=== PATIENT | male | born 1945 | race Caucasian/White ===

== ENCOUNTER 2017-09-09 05:20 | Inpatient (IN) | payer OTHER ==
--- NOTE | 2017-09-06 12:12 | HP ---
HISTORY OF PRESENT ILLNESS: patient is here today for presurgical H&P for scheduled Lumbar decompression L3-S1 on 09/09/[address] Muhammad PCP: Dr. Denny Patient is a 71 year old male with a significant past medical history of hypertension, hyperlipidemia, chronic right ankle fracture with chronic edema, psoriasis, fractured right femur 1970, carpal tunnel surgery of right hand 2005 , spinal surgery with removal and replacement of discs C3-C6 January 2006, spinal cortisone injections for spinal discs L3-L5, sleep apnea (on cpap), narcolepsy and cataplexy. Patient is scheduled for lumbar decompression L3-S1 on 09/09/[address] Muhammad and is here for a pre op history and physical. He denies any chest pain, shortness of breath, palpitations, visual defects, abdominal pain or any other discomfort. States he feels well and offers no complaints. He acknowledges stopping ASA, Meloxicam and Centrum Silver prior to surgery as directed by his surgeon. Home medications: lisinopril/hctz 20/25 daily amlodopine 10mg daily fluoxetine hcl 10 mg daily modafinil 200mg BID atorvastin 10mg daily Meloxican 15 daily Tacrolimus ointment daily taclonex topical suspension dialy ASA 81mg daily Centrum Silver daily Fish oil BID CPAP machine @ night Recent travel: none Family History: Social History: , lives with Smoking: denies Alcohol: denies Drugs: denies REVIEW OF SYSTEMS CONSTITUTIONAL: Absent: fever, chills, diaphoresis, generalized weakness, malaise, loss of appetite, weight change HEENT: Absent: rhinorrhea, nasal congestion, throat pain, throat swelling, difficulty swallowing, mouth swelling, ear pain, eye pain, visual changes CARDIOVASCULAR: Absent: chest pain, syncope, palpitations, irregular heart rate, lightheadedness , peripheral edema RESPIRATORY: Absent: cough, shortness of breath, dyspnea with exertion, orthopnea, wheezing, stridor, hemoptysis GASTROINTESTINAL: Absent: abdominal pain, abdominal distension, nausea, vomiting, diarrhea, constipation, melena, hematochezia GENITOURINARY: Absent: dysuria, frequency, urgency, hesitancy, hematuria, flank pain, genital pain MUSCULOSKELETAL: Absent: myalgia, arthralgia, joint swelling, back pain, neck pain SKIN: Absent: rash, itching, pallor HEMATOLOGIC/IMMUNOLOGIC: Absent: easy bleeding, easy bruising, lymphadenopathy, frequent infections ENDOCRINE: Absent: unexplained weight gain, unexplained weight loss, heat intolerance, cold intolerance NEUROLOGIC: Absent: headache, focal weakness or paresthesias, dizziness, unsteady gait, seizure, mental status changes, bladder or bowel incontinence PSYCHIATRIC: Absent: anxiety, depression, suicidal or homicidal ideation, hallucinations. PHYSICAL EXAMINATION: GENERAL: Awake, alert, and fully oriented, in no acute distress. HEAD: Normal with no signs of trauma. EYES: Pupils equal, round and reactive to light, extraocular movements intact, sclera anicteric, conjunctiva clear. No lid lag. EARS, NOSE, THROAT: Ears normal, nares patent, oropharynx clear without exudates. Moist mucous membranes. NECK: Normal range of motion, supple without lymphadenopathy, JVD, or masses. LUNGS: Breath sounds equal, clear to auscultation bilaterally. No wheezes, and no crackles. No accessory muscle use. HEART: Regular rate and rhythm ABDOMEN: Soft, nontender, not distended, normoactive bowel sounds, no guarding, no rebound, no masses. No hepatomegaly or splenomegaly. MUSCULOSKELETAL: Normal range of motion at all joints. No bony deformities or tenderness. No CVA tenderness. UPPER EXTREMITIES: No clubbing. No peripheral edema. LOWER EXTREMITIES: chronic right ankle pain and dependent edema for apx 12 years NEUROLOGICAL: Normal speech. Normal gait. PSYCHIATRIC: Cooperative. Good eye contact. Appropriate mood and affect. SKIN: psoriasis on lower back ASSESSMENT/PLAN: Patient is a 71 year old male with a significant past medical history of hypertension, hyperlipidemia, chronic right ankle fracture and chronic edema, psoriasis, fractured right femur 1970, carpal tunnel surgery of right hand 2005 , spinal surgery with removal and replacement of discs C3-C6 January 2006, spinal cortisone injections for spinal discs L3-L5, sleep apnea (on cpap), narcolepsy and cataplexy. Patient is scheduled for lumbar decompression L3-S1 on 09/09/[address] Muhammad and is here for a pre op history and physical. Imaging: Chest xray 08/30/2017: no acute pathology EKG 08/30/2017: sinus bradycardia 55 Pre op surgery: Lumbar decompression L3-S1: Medical clearance per patient's primary PCP noted in paper chart. Surgery scheduled for September 09, [address] Mil Muhammad. Cardiology: Hypertension history: No chest pain, No reported fatigue or palpitations. On lisinopril/hctz 20/25 daily, amlodopine 10mg daily. Hyperlipidemia history: On atorvastin 10mg daily. Pulmonary: Sleep apnea: on cpap. Followed by [facility] [place] sleep [facility] disposition: full code
[2017-09-09] MEDS ORDERED: SUCCINYLCHOLINE CHLORIDE 200 MG/10 ML VIAL ONE (13:13)
[2017-09-09] MEDS ORDERED: fentaNYL CITRATE 250 MCG/5 ML VIAL ONE ×2 (13:13→13:47)
[2017-09-09] MEDS ORDERED: MIDAZOLAM HCL 2 MG/2 ML SINGLE DOSE VIAL ONE ×3 (13:13)
[2017-09-09] MEDS ORDERED: PROPOFOL 20 ML ONE ×9 (13:13→17:31)
[2017-09-09] MEDS ORDERED: BENZOIN/ALOE VERA/STORAX/TOLU 58 ML BOTTLE ONE (13:19)
[2017-09-09] MEDS ORDERED: THROMBIN (BOVINE) 5,000 UNIT VIAL TP ONE ×2 (13:19→14:45)
[2017-09-09] MEDS ORDERED: HEPARIN NA (PORCINE) 5,000 UNITS/ML 1ML VIAL ONE (13:19)
[2017-09-09] MEDS ORDERED: ceFAZolin SODIUM 1 GM VIAL ONE ×2 (13:53→18:25)
[2017-09-09] MEDS ORDERED: VANCOMYCIN 1,000 MG VIAL (RESTRICTED TO ID ONLY) ONE (13:53)
[2017-09-09] MEDS ORDERED: GLYCOPYRROLATE 0.2 MG/1 ML VIAL ONE ×2 (14:06→14:15)
[2017-09-09] MEDS ORDERED: VANCOMYCIN 500 MG VIAL (RESTRICTED TO ID ONLY) IVPB ONE (14:12)
[2017-09-09] MEDS ORDERED: DEXAMETHASONE SOD PHOSPHATE 4 MG/1 ML VIAL ONE (14:16)
[2017-09-09] MEDS ORDERED: ONDANSETRON 4 MG/2 ML VIAL ONE ×2 (14:16→19:04)
[2017-09-09] MEDS ORDERED: ceFAZolin SODIUM 1 GM VIAL IVPB ONE (14:22)
[2017-09-09] MEDS ORDERED: ROCURONIUM BROMIDE 50 MG/5 ML VIAL ONE (14:39)
[2017-09-09] MEDS ORDERED: GELATIN, ABSORBABLE 100 EACH SPONGE TP ONE (14:45)
[2017-09-09] MEDS ORDERED: TRANEXAMIC ACID 1000 MG/10 ML VIAL ONE (15:43)
[2017-09-09] MEDS ORDERED: ePHEDrine SULFATE 50 MG/1 ML AMPULE ONE (16:12)
[2017-09-09] MEDS ORDERED: PHENYLEPHRINE HCL 10 MG/1 ML SINGLE DOSE VIAL ONE (16:34)
[2017-09-09] MEDS ORDERED: ONDANSETRON 4 MG/2 ML VIAL IVPUSH PRN ×2 (19:45→19:58)
[2017-09-09] MEDS ORDERED: LACTATED RINGERS SOLUTION 1,000 ML IV SCH (19:45)
[2017-09-09] MEDS ORDERED: HYDROmorphone *PCA* 10MG/50ML DISP.SYRIN PCA SCH (19:45)
[2017-09-09] MEDS ORDERED: HYDROmorphone *PCA* 10MG/50ML DISP.SYRIN PCA ONE ×2 (19:52→20:28)
--- NOTE | 2017-09-09 19:54 | PN ---
Progress Note (short form) - Note Progress Note: 71M s/p L4-S1 laminectomies; L3-L4, L4-L5 & L5-S1 PLIF; L2-S1 PISF POD #0. -Admit to ICU post-op. -Pain control: per anaesthesia team. -DVT PPx: - Mechanical only: JULI's, SCD's. -Incentive spirometry. -PT/OT/Rehab, OOB. -WBAT B/L LE. -q4h B/L LE NV checks. -Post-op antibiotics x 2 doses. -NPO until flatus. -f/u AM labs. -f/u drain output. -d/c Vargas catheter when ambulating. -Care per medical hospitalist team. -Discharge planning[facility]; call for appointment; . -Will follow. Mil Muhammad MD (Orthopaedic Surgery).
--- NOTE | 2017-09-09 19:58 | OP ---
Operative Note - Note: Operative Date: 09/09/17 Pre-Operative Diagnosis: Lumbar spinal stenosis Operation: 1. L4-S1 laminectomies. 2. L3-L4, L4-L5 & L5-S1 PLIF. 3. L2-S1. 4. L3, L4 SPO's. 5. Bone autograft. 6. Bone allograft Findings: Incidental durotomy s/p primary repair Post-Operative Diagnosis: Same as Pre-op Surgeon: Mil Muhammad Linoleum Layer Helper: Vinicius Muhammad Anesthesiologist/AIR BAG CURER: Jose Luis Diaz Anesthesia: General Specimens Removed: L3-4, L4-5, L5-S1 discs Estimated Blood Loss (mls): 2,100 Blood Volume Replaced (mls): 1,125 (Cell Saver) Fluid Volume Replaced (mls): 3,000 (Crystalloid) Operative Report Dictated: Yes
[2017-09-09] MEDS: ACETAMINOPHEN 1000 MG/100 ML VIAL (NON FORMULARY) IVPB SCH (20:00)
[2017-09-09] MEDS ORDERED: [UNRECOGNIZED DRUG - OTHER] TD PRN (20:03)
[2017-09-09] MEDS ORDERED: CALCIPOTRIENE TD PRN (20:03)
[2017-09-09] MEDS ORDERED: BETAMETHASONE TD PRN (20:03)
[2017-09-09] MEDS ORDERED: ACETAMINOPHEN 1000 MG/100 ML VIAL (NON FORMULARY) IVPB ONE (20:59)
[2017-09-09] MEDS ORDERED: ACETAMINOPHEN INJECTION 100 ML IVPB ONE (21:00)
[2017-09-09] MEDS: LACTATED RINGERS SOLUTION 1,000 ML IV SCH (21:00)
--- NOTE | 2017-09-09 21:45 | CONSULT ---
Consultation: REQUESTING PROVIDER: CONSULT REQUEST: We have been asked to medically evaluate this patient for ( intensive care ). HISTORY OF PRESENT ILLNESS: Patient is a 71 year old male with a significant past medical history of hypertension, hyperlipidemia, chronic right ankle fracture with chronic edema, psoriasis, sleep apnea (on cpap), narcolepsy and cataplexy. Patient received from PACU after L4-S1 laminectomies. 2. L3-L4, L4-L5 & L5-S1 PLIF. 3. L2-S1. 4. L3, L4 SPO's. 5. Bone autograft. 6. Bone allograft. On STRAIGHTENING ROLL OPERATOR pump for pain control. Complains of pain in back, denies chest pain, sob, palpitations. Denies fecal incontinence. denies numbness and weakness in b/l lower limb. BP 116/68 MA 102 PHYSICAL EXAMINATION Vital Signs - 24 hr 09/09/17 09/09/17 09/09/17 10:20 19:38 19:55 Temperature 98.6 F 98.2 F Pulse Rate 56 L 94 H 90 Respiratory 20 16 16 Rate Blood Pressure 135/70 87/55 92/62 O2 Sat by Pulse 97 95 95 Oximetry (%) 09/09/17 09/09/17 09/09/17 20:10 20:25 20:40 Temperature Pulse Rate 94 H 100 H 92 H Respiratory 16 16 16 Rate Blood Pressure 108/70 99/66 94/69 O2 Sat by Pulse 95 95 95 Oximetry (%) 09/09/17 09/09/17 09/09/17 20:55 21:10 21:25 Temperature 97.9 F Pulse Rate 96 H 94 H 94 H Respiratory 16 16 16 Rate Blood Pressure 100/60 98/70 100/70 O2 Sat by Pulse 95 95 Oximetry (%) GENERAL: Awake, alert, and fully oriented, EARS, NOSE, THROAT: dry mucous membranes. LUNGS: Breath sounds equal, clear to auscultation bilaterally. No wheezes, and no crackles. No accessory muscle use. HEART: Regular rate and rhythm, normal S1 and S2 without murmur, ABDOMEN: Soft, nontender, not distended, normoactive bowel sounds, no guarding, no rebound, no masses. bryant cath in situ, dressing present in entire back UPPER EXTREMITIES: 2+ pulses, warm, well-perfused. No cyanosis. LOWER EXTREMITIES: warm, well-perfused. No calf tenderness. No peripheral edema. sensation to touch intact b/l, moving toes and b/l lower limb SKIN: Warm, dry, Laboratory Results - last 24 hr 09/09/17 09:58 Blood Type A POSITIVE Active Medications Generic Name Dose Route Start Last Admin Trade Name Freq PRN Reason Stop Dose Admin Acetaminophen 1,000 mg 09/09/17 20:00 Ofirmev Injection - IVPB 09/10/17 12:01 Q8H OMEGA Amlodipine Besylate 10 mg 09/10/17 10:00 Norvasc - PO DAILY OMEGA Fluoxetine HCl 10 mg 09/10/17 10:00 Prozac - PO DAILY [facility] Hydrochlorothiazide 25 mg 09/10/17 10:00 Hctz - PO DAILY [facility] Hydromorphone HCl 0 mg 09/09/17 19:45 Dilaudid Concrete Mixer Operator Helper - STRAIGHTENING ROLL OPERATOR 09/12/17 19:46 STRAIGHTENING ROLL OPERATOR OMEGA Protocol Cefazolin Sodium 1 gm/ 50 mls @ 100 mls/hr 09/10/17 02:00 Dextrose IVPB 09/10/17 10:29 Q8H-IV OMEGA Lactated Ringer's 1,000 mls @ 100 mls/hr 09/09/17 20:00 Lactated Ringers Solution IV ASDIR [facility] Lisinopril 20 mg 09/10/17 10:00 Prinivil PO DAILY [facility] Non-Formulary Medication 0.1 tube 09/09/17 20:03 Calcipotriene/Betamethasone [Taclonex 0.005%-0.064% Suspens] TD PRN PRN PSORIASIS Non-Formulary Medication 200 mg 09/10/17 10:00 Modafinil [Modafinil] PO DAILY [facility] Ondansetron HCl 4 mg 09/09/17 19:45 Zofran Injection IVPUSH Q6H PRN NAUSEA AND/OR VOMITING Ondansetron HCl 4 mg 09/09/17 19:58 Zofran Injection IVPUSH Q6H PRN NAUSEA AND/OR VOMITING ASSESSMENT/PLAN: Lumber spinal stenosis s/p L4-S1 laminectomies. 2. L3-L4, L4-L5 & L5-S1 PLIF. 3. L2-S1. 4. L3, L4 SPO's. 5. Bone autograft. 6. Bone allograft. Pain control as per aesthesis, on STRAIGHTENING ROLL OPERATOR pump. Physical therapy request. early ambulation. B/l LE Neuro evaluation q4h antibiotic as per surgery team. NPO until pass flatus Bryant in situ, remove once ambulating. incentive spirometry. Zofran for nausea. HTN on lisinopril/ thiazide and amlodipine aspirin on hold HLD on statin sleep apnea uses CPAP 10cm of h2o h/o Narcolepsy and catplexy home med medafinil fluid LR 100ml/hr electrolyte: repeat in am nutrition : repeat in am dvt pro scd b/l gi pro: pepcid dispo icu Visit type - Emergency Visit Emergency Visit: Yes ED Registration Date: 09/09/17 Care time: The patient presented to the Emergency Department on the above date and was hospitalized for further evaluation of their emergent condition. - New Patient This patient is new to me today: Yes Date on this admission: 09/10/17 - Critical Care Critical Care patient: Yes Total Critical Care Time (in minutes): 45 Critical Care Statement: The care of this patient involved high complexity decision making to prevent further life threatening deterioration of the patient 's condition and/or to evaluate & treat vital organ system(s) failure or risk of failure.
[2017-09-09] MEDS: FAMOTIDINE 20 MG/50 ML IVPB 20 MG/50 ML MG IVPB SCH (22:34)
[2017-09-10] MEDS ORDERED: ceFAZolin SODIUM 1 GM VIAL ONE ×2 (01:13→09:47)
[2017-09-10] MEDS ORDERED: DEXTROSE 5%-WATER - 50 ML IVPB ONE ×2 (01:14→09:48)
[2017-09-10] MEDS: CEFAZOLIN 1 GM in DEXTROSE 5%-WATER - 50 ML IVPB SCH ×2 (01:16→10:11)
[2017-09-10] MEDS: ACETAMINOPHEN 1000 MG/100 ML VIAL (NON FORMULARY) IVPB SCH ×2 (04:00→12:35)
[2017-09-10 06:13] LABS: HEMATOCRIT 39.9 % (35.4-49); HEMOGLOBIN 13.1 GM/dL (11.7-16.9); MCH 29.6 pg (25.7-33.7); MCHC 32.8 g/dl (32.0-35.9); MEAN CELL VOLUME 90.2 fl (80-96); MEAN PLT VOLUME 9.7 fl (7.5-11.1); PLATELET COUNT 162 K/MM3 (134-434); RBC 4.43 M/mm3 (4.00-5.60); RDW 14.2 % (11.9-15.9)
[2017-09-10 06:37] LABS: ANION GAP 9 (8-16); BLOOD UREA NITROGEN 29 mg/dL (7-18); CALCIUM 8.4 mg/dL (8.5-10.1); CHLORIDE 103 mmol/L (98-107); CO2 27 mmol/L (21-32); CREATININE 1.7 mg/dL (0.7-1.3); GLUCOSE,RANDOM 193 mg/dL (74-106); POTASSIUM 5.1 mmol/L (3.5-5.1); SODIUM 139 mmol/L (136-145)
--- NOTE | 2017-09-10 07:28 | OP ---
DATE OF OPERATION: 09/09/2017 SURGEON: Mil Muhammad MD BUDGET CONTROLLER: Vinicius Muhammad MD PREOPERATIVE DIAGNOSIS: L3-L4, L4-L5, L5-S1 disc prolapse disease with spinal stenosis, segmental instability, kyphosis, and associated degenerative lumbar scoliosis. POSTOPERATIVE DIAGNOSIS: L3-L4, L4-L5, L5-S1 disc prolapse disease with spinal stenosis, segmental instability, kyphosis, and associated degenerative lumbar scoliosis. OPERATION PERFORMED: 1. Laminectomy L3, L4 and L5. 2. Undercutting facetectomy, L3, L4, and L5, left and right hand sides. 3. Posterior lumbar interbody fusion, L3-L4, L4-L5, and L5-S1. 4. Incidental dural tear with dural repair. 5. Pedicle screw instrumentation L2, L3, L4, L5, S1 (due to scoliosis). Planned L3, L4, L5, S1 fusion. Bone graft, autograft, allograft, and bone marrow aspirate concentrate added to the bone graft. 6. Use of biplane fluoroscopy and intraoperative neuromonitoring. 7. Villeda-Rodríguez osteotomy at L4-L5. 8. Complex wound closure 30 cm. 9. Pedicle screw instrumentation with posterolateral arthrodesis L2, L3, L4, L5 , S1. OPERATION DETAILS: Patient was correctly identified, brought into the operating room, placed prone on a spinal frame with Dalton rolls. The pelvis was held in as much extension as possible to prevent any retroversion. Time-out was called. Imaging was developed for intraoperative evaluation. The skin was cleansed with Betadine scrub solution, wiped with alcohol, and DuraPrep applied. A square drape applied. Preoperative incision, lateral fluoroscopic x-ray, helped us delineate exactly the level of the incision. Incision was from the tip of the sponge from the spinous process of T12 right down to the tip of the spinous process of S2. Longitudinal incision performed. Subperiosteal dissection performed, extending out to the transverse processes of L2, L3, L4, L5, S1. We originally planned the surgery to be an L3, L4, L5, S1 fusion to take care of the stenosis, but seeing the scoliosis on the table, and this is a purely lumbar scoliosis striking at the L1-L2 level, we elected to extend right up to the striking of the spine at L2. Full laminectomy at L3, L4, L5, S1, with undercutting facetectomy performed. A dural rent distally was noted, and this was then repaired with 4-0 nylon. This is water-tight sealed and tested with repeat Valsalva maneuvers at 30 cm and then the final at 40 cm and complete sealing performed. After the repair, Surgicel combined with fibrin glue was placed over the dura. This, to ensure that there was no leakage. The dura was completely freed. This proved to be an extremely difficult dissection due to the adherence of the dura to the vertebral canal diaz, and the discs were massive bulging discs at L3-L4, L4-L5, and L5-S1. Each disc was identified. Bipolar Bovie was utilized to take care of the epidural veins, which were massive. Bleeding was copious throughout. The annulotomy was performed with the 11 blade. Shaving was performed at each level, and serrated curettes as well as pituitary rongeurs entered each disc at each of these levels completely right down to healthy end-plate bone. Each interbody space was then packed with cancellous cortical bone, which was milled in a [employer], packed into the interbody space, and at each level, an appropriate interbody cage was inserted. The L3-L4 and the L5-S1 cages measured 11 (these were 40-link spaces) , and the L4-L5 interspace was a 12-mm 40-link spacer. No complications in inserting these excepting for a steady ooze. Self-saving blood was utilized. The dissection, which was taken out to the tip of the transverse processes, the muscles were retracted further, and instrumentation was performed from L2 to S1 , each dual seating was with lateral guidelines guided with lateral fluoroscopic x- ray. Each drill hole was palpated with a ball-tipped probe and each screw measured 6.5 x 45 mm screws excepting at S1 there was 7.5 x 40 mm screws. Each screw was then tested after having been placed appropriately. The AP and lateral x-rays were checked and found to be in most satisfactory position. The cages themselves had opened to disc heights beautifully and restoring the entire anatomy of the lumbar lordosis and vertebral canal. The rods were then applied to the screw heads, tightened with the appropriate caps and torque device. One crosslink applied. It must be noted that all screws, once seated, had been tested with neuromonitoring and found to be completely within the safe zones, well above 10 mA for each screw. The wounds were covered laboriously throughout the procedure. Once the instrumentation had been seated, another 1 g of Kefzol was given, preoperatively 2 g of Kefzol and 1 g vancomycin had been given. The posterolateral arthrodesis was completed by packing a combination of autologous as well expanded allograft bone chips all mixed with 120 mL of marrow aspirate from a left posterior ileum, which was spun down for the CD34 cells and mixed appropriately for enhanced bone incorporation. The wounds were then thoroughly lavaged, the dura checked once again, found to be completely sealed. The muscle was appropriately debrided because of prolonged retraction throughout the procedure. Skin was a complex wound closure as follows: Muscle 1 Vicryl, fascia 1 Vicryl, subcutaneous 1 and 2-0 Vicryl, skin lamar. No drainage. We left intermittent easy suturing to allow drainage themselves. The reason for the lack of drainage was because of the avoidance of negative pressure due to the dural tear. Patient tolerated the procedure well. Postoperative x-rays were excellent and revealed all components seated well and anatomy restored. Patient will be transferred to the ICU. MD GAETANO King/[id number] MTDMay
[2017-09-10] MEDS ORDERED: PT OWN MED DRAWER 7, Y5N ONE (09:47)
[2017-09-10] MEDS ORDERED: amLODIPine BESYLATE 10 MG TABLET (FP) PO SCH (10:00)
[2017-09-10] MEDS ORDERED: HYDROCHLOROTHIAZIDE 25 MG TABLET (FP) PO SCH (10:00)
[2017-09-10] MEDS ORDERED: PATIENT'S OWN MEDICATION (NON-FORMULARY) (Lisinopril/Hydrochlorothiazide [Lisinopril-Hctz PO SCH (10:00)
[2017-09-10] MEDS ORDERED: LISINOPRIL 20 MG TABLET (FP) PO SCH (10:00)
[2017-09-10] MEDS: FAMOTIDINE 20 MG/50 ML IVPB 20 MG/50 ML MG IVPB SCH ×2 (10:12→21:11)
[2017-09-10] MEDS: HYDROmorphone *PCA* 10MG/50ML DISP.SYRIN PCA SCH (10:14)
[2017-09-10] MEDS: FLUoxetine HCL 10 MG CAPSULE (FP) PO SCH (10:14)
--- NOTE | 2017-09-10 12:57 | PN ---
Teaching Attending Note Name of Resident: Hira Bowman ATTENDING PHYSICIAN STATEMENT I saw and evaluated the patient. I reviewed the resident's note and discussed the case with the resident. I agree with the resident's findings and plan as documented. SUBJECTIVE: Pt seen and examined in the ICU. Pain relatively controlled. Denies nausea or vomiting. No fevers or chills. No shortness of breath or chest pain. OBJECTIVE: Vital Signs Period Temp Pulse Resp BP Sys/Irizarry Pulse Ox Last 24 Hr 97.9 F-98.7 F 77-104 16-20 87-111/55-77 95-97 Intake & Output 09/07/17 09/08/17 09/09/17 09/10/17 23:59 23:59 23:59 23:59 Intake Total 4325 1050 Output Total 2500 500 Balance 1825 550 Gen: NAD at rest Heart: RRR Lung: decreased breath sounds at the bases Abd: soft, nontender Ext: no edema CBC, BMP 09/10/17 05:30 09/10/17 05:30 Active Medications Fluoxetine HCl (Prozac -) 10 mg PO DAILY [facility] Last Admin: 09/10/17 10:14 Dose: 10 mg Hydromorphone HCl (Dilaudid Skein Dyer -) 0 mg INSTRUCTIONAL SUPPORT SERVICES DIRECTOR INSTRUCTIONAL SUPPORT SERVICES DIRECTOR [facility]; Protocol Last Admin: 09/10/17 10:14 Dose: Not Given Lactated Ringer's (Lactated Ringers Solution) 1,000 mls @ 100 mls/hr IV ASDIR [facility] Last Admin: 09/09/17 21:00 Dose: 100 mls/hr Famotidine/Sodium Chloride (Pepcid 20 Mg Premixed Ivpb -) 20 mg in 50 mls @ 100 mls/hr IVPB BID [facility] Last Admin: 09/10/17 10:12 Dose: 100 mls/hr Non-Formulary Medication (Calcipotriene/Betamethasone [Taclonex 0.005%-0.064% Suspens]) 0.1 tube TD PRN PRN PRN Reason: PSORIASIS Non-Formulary Medication (Modafinil [Modafinil]) 200 mg PO DAILY [facility] Ondansetron HCl (Zofran Injection) 4 mg IVPUSH Q6H PRN PRN Reason: NAUSEA AND/OR VOMITING Ondansetron HCl (Zofran Injection) 4 mg IVPUSH Q6H PRN PRN Reason: NAUSEA AND/OR VOMITING Oxycodone/Acetaminophen (Percocet 5/325 -) 1 combo PO Q6H PRN PRN Reason: PAIN LEVEL 1-5 Oxycodone/Acetaminophen (Percocet 5/325 -) 2 combo PO Q3H PRN PRN Reason: PAIN LEVEL 6-10 ASSESSMENT AND PLAN: Lumbar Spinal Stenosis s/p L4-S1 Laminectomies/L3-L4, L4-L5, L5-S1 PLIF Incidental Durotomy Acute Blood Loss Anemia Acute Kidney Injury HTN Hyperlipidemia - pain control - incentive spirometry - monitor H/H - IVF - monitor urine output, creatinine - PO/activity/DVT prophylaxis/disposition per surgery
[2017-09-10 13:31] LABS: BASO % 0.2 % (0-2.0); HEMATOCRIT 37.3 % (35.4-49); HEMOGLOBIN 12.2 GM/dL (11.7-16.9); LYMPH % 4.8 % (8-40); MCH 29.5 pg (25.7-33.7); MCHC 32.7 g/dl (32.0-35.9); MEAN CELL VOLUME 90.2 fl (80-96); MEAN PLT VOLUME 9.9 fl (7.5-11.1); MONO % 9.8 % (3.8-10.2); NEUT % 85.2 % (42.8-82.8); PLATELET COUNT 172 K/MM3 (134-434); RBC 4.14 M/mm3 (4.00-5.60); RDW 14.5 % (11.9-15.9); WHITE BLOOD COUNT 17.5 K/mm3 (4.0-10.0)
--- NOTE | 2017-09-10 14:22 | PN ---
Progress Note (short form) - Note Progress Note: POD #1 - s/p L2-S1 PLIF under GA with Dilaudid FISHER MUSSEL for postop pain management. VSS. Pt. doing well, resting in bed getting ready for some rehab. Pain score 7/10. Pt. encouraged to use FISHER MUSSEL. Also getting IV acetaminophen. Will continue FISHER MUSSEL for now. Overall, doing well. No apparent anesthetic complications noted.
[2017-09-10] MEDS ORDERED: oxyCODONE HCL 5 MG TABLET PO PRN ×2 (14:25→14:28)
[2017-09-10] MEDS ORDERED: ACETAMINOPHEN 325 MG TABLET (FP) PO PRN ×2 (14:25→14:33)
[2017-09-10 15:35] VITALS: BMI 26.9
--- NOTE | 2017-09-10 17:28 | PN ---
Teaching Attending Note Name of Resident: Sunita Denise ATTENDING PHYSICIAN STATEMENT I saw and evaluated the patient. I reviewed the resident's note and discussed the case with the resident. I agree with the resident's findings and plan as documented. SUBJECTIVE:c/o incisional pain on his back as well as generalized weakness. states pain is controlled. denies Cp, SOB, fever, chills, N/V/C/D, numbness/ weakness of extremities OBJECTIVE: Last Vital Signs Temp Pulse Resp BP Pulse Ox 98.2 F 77 20 91/52 97 09/10/17 14:00 09/10/17 16:00 09/10/17 16:00 09/10/17 16:00 09/10/17 08:45 General NAD CV S1 S2 RRR no murmur/rub/gallop Lungs CTA B/L no wheezing/rales/rhonchi Abdomen soft NT/ND extremities strength equal in all 4 extremities good dorsi/plantarflexion. swelling limited to R ankle ASSESSMENT AND PLAN: 71yo M with PMH spinal stenosis, HTN, dyslipidemia, R ankle fracture, psoriasis , MADHURI on cpap, narcolepsy presented for scheduled for laminectmy 1. Spinal stenosis s/p L4-S1 laminectomy with durotomy tear s/p repair. on prophylactic cefazlin. appears pain is controlled on CEMENT RUBBER pump. can likely d/c and transition to oral agents. OOB. can remove bryant when ambulating. advance diet. further recommendations per surgery. 2. significant blood loss during surgery- cellsaver and crystalloids given during surgery. will repeat later today to ensure is staying stable. no indication for transfusion at this time 3. Hypotension- typicaly hypertensives. likely due to hypovolemia combined with narcotic use. improved. asymptomatic. would hold all antihypertensives and restart as needed 4. CAMI- likely due to hypotension. no known hx of CKD. will hydrate and monitor. avoid nephrotoxic agents. consider renal u/s if does not improve 5. MADHURI- on cpap HS 6. narcolepsy- on modafinil. will see if formulary. if not pt can bring in from home 7. DVT ppx- SCD 8. MICU monitoring. if BP improves can transfer to med-surg The care of this patient involved high complexity decision making to prevent further life threatening deterioration of the patient's condition and/or to evaluate & treat vital organ system(s) failure or risk of . 40 mins
[2017-09-10] MEDS: LACTATED RINGERS SOLUTION 1,000 ML IV SCH ×2 (17:30→21:12)
--- NOTE | 2017-09-10 19:15 | PN ---
Physical Exam: SUBJECTIVE: Patient seen and examined today in icu. C/o rt upper back pain near site of surgery. Also c/o rt hand tremor. Denies cp, sob, huang, nausea, or vomiting. OBJECTIVE: Vital Signs Period Temp Pulse Resp BP Sys/Irizarry Pulse Ox Last 24 Hr 97.9 F-98.7 F 77-104 16-21 87-111/50-77 95-97 GENERAL: aaoX3 HEAD: Normal with no signs of trauma. EYES: EOMI NECK: Trachea midline, full range of motion, supple. LUNGS: CTA B/L. HEART: RRR, -m/r/g, s1,s2+ ABDOMEN: soft, nt, nd, -bs. EXTREMITIES: 2+ pulses, warm NEUROLOGICAL: No neuro deficits PSYCH: Normal mood, normal affect. SKIN: Warm, dry. Laboratory Results - last 24 hr 09/10/17 09/10/17 09/10/17 05:30 05:30 13:05 WBC 20.0 H 17.5 H RBC 4.43 4.14 Hgb 13.1 12.2 Hct 39.9 37.3 MCV 90.2 90.2 MCH 29.6 29.5 MCHC 32.8 32.7 RDW 14.2 14.5 Plt Count 162 172 MPV 9.7 9.9 Absolute Neuts (auto) 14.9 Neutrophils % 85.2 H Lymphocytes % 4.8 L Monocytes % 9.8 Eosinophils % 0.0 Basophils % 0.2 Nucleated RBC % 0 Sodium 139 Potassium 5.1 Chloride 103 Carbon Dioxide 27 Anion Gap 9 BUN 29 H Creatinine 1.7 H Creat Clearance w eGFR 40.16 Random Glucose 193 H Calcium 8.4 L Active Medications Generic Name Dose Route Start Last Admin Trade Name Freq PRN Reason Stop Dose Admin Acetaminophen 325 mg 09/10/17 14:25 Tylenol - PO Q6H PRN PAIN LEVEL 1-5 WITH OXYCODONE Acetaminophen 650 mg 09/10/17 14:33 Tylenol - PO Q3H PRN PAIN LEVEL 6-10 WITH OXYCODONE Fluoxetine HCl 10 mg 09/10/17 10:00 09/10/17 10:14 Prozac - PO 10 mg DAILY [facility] Administration Hydromorphone HCl 0 mg 09/10/17 09:45 09/10/17 10:14 Dilaudid Jewelry Bench Worker - PERSONAL LOAN SPECIALIST Not Given PERSONAL LOAN SPECIALIST [facility] Protocol Lactated Ringer's 1,000 mls @ 100 mls/hr 09/09/17 20:00 09/09/17 21:00 Lactated Ringers Solution IV 100 mls/hr ASDIR [facility] Administration Famotidine/Sodium Chloride 20 mg in 50 mls @ 100 mls/hr 09/09/17 22:00 10:12 Pepcid 20 Mg Premixed Ivpb - IVPB 100 mls/hr BID [facility] Administration Non-Formulary Medication 0.1 tube 09/09/17 20:03 Calcipotriene/Betamethasone [Taclonex 0.005%-0.064% Suspens] TD PRN PRN PSORIASIS Non-Formulary Medication 200 mg 09/10/17 10:00 Modafinil [Modafinil] PO DAILY [facility] Ondansetron HCl 4 mg 09/09/17 19:45 Zofran Injection IVPUSH Q6H PRN NAUSEA AND/OR VOMITING Ondansetron HCl 4 mg 09/09/17 19:58 Zofran Injection IVPUSH Q6H PRN NAUSEA AND/OR VOMITING Oxycodone HCl 5 mg 09/10/17 14:25 Roxicodone - PO Q6H PRN PAIN LEVEL 1-5 Oxycodone HCl 10 mg 09/10/17 14:28 Roxicodone - PO Q3H PRN PAIN LEVEL 6-10 ASSESSMENT/PLAN: 71yo M with past medical history of spinal stenosis, HTN, dyslipidemia, right ankle fracture, psoriasis, MADHURI on cpap, and narcolepsy presented for s/p L4-S1 Laminectomies/L3-L4, L4-L5, L5-S1 PLIF [address] Dr Muhammad. PERSONAL LOAN SPECIALIST for pain Physical therapy B/l LE Neuro evaluation q4h antibiotic as per surgery team. Vargas remove once ambulating. incentive mary kate. Zofran for nausea. early ambulation qs JULI's Neuro assessment qshift MADHURI uses CPAP 10cm of h2o h/o Narcolepsy and catplexy- Modafanil 200 mg po daily HTN on lisinopril/ thiazide and amlodipine FEN Lactated Ringer's Monitor Electrolytes Sodium Controlled Diet DVT ppx: JULI's Dispo: Continue to monitor per Dr Muhammad Visit type - Emergency Visit Emergency Visit: No - New Patient This patient is new to me today: Yes Date on this admission: 09/10/17 - Critical Care Critical Care patient: Yes Total Critical Care Time (in minutes): 35 Critical Care Statement: The care of this patient involved high complexity decision making to prevent further life threatening deterioration of the patient 's condition and/or to evaluate & treat vital organ system(s) failure or risk of failure.
--- NOTE | 2017-09-10 19:45 | PN ---
Physical Exam: SUBJECTIVE: Patient seen and examined in the ICU. Has used the pain pump once. Believes his pain is well controlled. Denies Chest pain, SOB, Nausea, vomiting, diarrhea, constiaption. OBJECTIVE: Vital Signs Period Temp Pulse Resp BP Sys/Irizarry Pulse Ox Last 24 Hr 97.9 F-98.7 F 77-104 16-21 87-111/50-77 95-97 GENERAL: The patient is awake, alert, and fully oriented, in no acute distress. LUNGS: Breath sounds equal, clear to auscultation bilaterally, no wheezes, no crackles, on 2L via nasal canula HEART: Regular rate and rhythm, S1, S2 without murmur, rub or gallop. ABDOMEN: Soft, nontender, nondistended, normoactive bowel sounds : Bryant catheter draining dark yellow urine EXTREMITIES: Muscle strength 5/5 in Upper extremities to Flexion and extension, 5/5 in Lower extremities to dorsi flexion and plantar flexion, 2+ pulses, no edema, in SCD's NEUROLOGICAL: Cranial nerves II through XII grossly intact. Normal speech, gait not observed. Gross sensation intact throughout Laboratory Results - last 24 hr 09/10/17 09/10/17 09/10/17 05:30 05:30 13:05 WBC 20.0 H 17.5 H RBC 4.43 4.14 Hgb 13.1 12.2 Hct 39.9 37.3 MCV 90.2 90.2 MCH 29.6 29.5 MCHC 32.8 32.7 RDW 14.2 14.5 Plt Count 162 172 MPV 9.7 9.9 Absolute Neuts (auto) 14.9 Neutrophils % 85.2 H Lymphocytes % 4.8 L Monocytes % 9.8 Eosinophils % 0.0 Basophils % 0.2 Nucleated RBC % 0 Sodium 139 Potassium 5.1 Chloride 103 Carbon Dioxide 27 Anion Gap 9 BUN 29 H Creatinine 1.7 H Creat Clearance w eGFR 40.16 Random Glucose 193 H Calcium 8.4 L Active Medications Acetaminophen (Tylenol -) 325 mg PO Q6H PRN PRN Reason: PAIN LEVEL 1-5 WITH OXYCODONE Acetaminophen (Tylenol -) 650 mg PO Q3H PRN PRN Reason: PAIN LEVEL 6-10 WITH OXYCODONE Fluoxetine HCl (Prozac -) 10 mg PO DAILY [facility] Last Admin: 09/10/17 10:14 Dose: 10 mg Hydromorphone HCl (Dilaudid Asphalt Raker -) 0 mg CASTINGS DRAFTER CASTINGS DRAFTER [facility]; Protocol Last Admin: 09/10/17 10:14 Dose: Not Given Lactated Ringer's (Lactated Ringers Solution) 1,000 mls @ 100 mls/hr IV ASDIR [facility] Last Admin: 09/10/17 17:30 Dose: 100 mls/hr Famotidine/Sodium Chloride (Pepcid 20 Mg Premixed Ivpb -) 20 mg in 50 mls @ 100 mls/hr IVPB BID [facility] Last Admin: 09/10/17 10:12 Dose: 100 mls/hr Non-Formulary Medication (Calcipotriene/Betamethasone [Taclonex 0.005%-0.064% Suspens]) 0.1 tube TD PRN PRN PRN Reason: PSORIASIS Non-Formulary Medication (Modafinil [Modafinil]) 200 mg PO DAILY [facility] Ondansetron HCl (Zofran Injection) 4 mg IVPUSH Q6H PRN PRN Reason: NAUSEA AND/OR VOMITING Ondansetron HCl (Zofran Injection) 4 mg IVPUSH Q6H PRN PRN Reason: NAUSEA AND/OR VOMITING Oxycodone HCl (Roxicodone -) 5 mg PO Q6H PRN PRN Reason: PAIN LEVEL 1-5 Oxycodone HCl (Roxicodone -) 10 mg PO Q3H PRN PRN Reason: PAIN LEVEL 6-10 ASSESSMENT/PLAN: 71 year old male with a PMHx of HTN, HLD, chronic right ankle fracture and chronic edema, spinal surgery of discs C3-C6, spinal cortisone injections of discs L3-L5, MADHURI on cpap, narcolepsy and cataplexy who is S/P Lumbar decompression L3-S1 1. Spinal Stenosis s/p L4-S1 laminectomy - Cefazolin 2 doses perioperatively - Pain control via CASTINGS DRAFTER pump, as directed by anaesthesia team - Encouraged to ambulate and be out of bed - Remove bryant once ambulating - Advance diet - Follow recommendations as per surgery team - PT Evaluation - Incentive Spirometry 2. Elevated BUN and Cr - Likely due to Significant blood loss during surgery (2100 ml's) - 1,125mL Blood Volume Replaced via Cell Saver, 3000mL Fluid Volume Replaced via Crystalloid - Repeat Hgb 12.2, Hct 37.3 3. Leukocytosis - Acute phase reactant likely elevated from surgery - WBC 20.0 --> 17.5 - 2 doses cefazolin given - Continue to monitor, consider sepsis workup with accompanied by fevers 4. Hypotension - Likely due to hypovolemia and hypovolemia from narcotic use - Improved, 110/50 this evening - Continue to hold all antihypertensives for now 5. CAMI - Likely due to hypotension - Hydrate and continue to monitor 6. DVT ppx - SCD 7. Dispo - ICU currently, Can transfer to med-surg once BP improves Visit type - Emergency Visit Emergency Visit: No - New Patient This patient is new to me today: Yes Date on this admission: 09/10/17 - Critical Care Critical Care patient: Yes Total Critical Care Time (in minutes): 40 Critical Care Statement: The care of this patient involved high complexity decision making to prevent further life threatening deterioration of the patient 's condition and/or to evaluate & treat vital organ system(s) failure or risk of failure.
[2017-09-11] MEDS ORDERED: HYDROmorphone *PCA* 10MG/50ML DISP.SYRIN PCA ONE (06:03)
[2017-09-11 06:25] LABS: BASO % 0.2 % (0-2.0); HEMATOCRIT 28.5 % (35.4-49); HEMOGLOBIN 9.6 GM/dL (11.7-16.9); MCH 30.1 pg (25.7-33.7); MCHC 33.8 g/dl (32.0-35.9); MEAN CELL VOLUME 89.2 fl (80-96); MEAN PLT VOLUME 9.9 fl (7.5-11.1); MONO % 10.4 % (3.8-10.2); NEUT % 84.4 % (42.8-82.8); PLATELET COUNT 112 K/MM3 (134-434); RBC 3.19 M/mm3 (4.00-5.60); RDW 14.5 % (11.9-15.9)
[2017-09-11 06:48] LABS: ALBUMIN 2.4 g/dl (3.4-5.0); ANION GAP 5 (8-16); BLOOD UREA NITROGEN 36 mg/dL (7-18); CALCIUM 8.2 mg/dL (8.5-10.1); CHLORIDE 102 mmol/L (98-107); CO2 31 mmol/L (21-32); GLUCOSE,RANDOM 134 mg/dL (74-106); MAGNESIUM 1.7 mg/dL (1.8-2.4); POTASSIUM 4.4 mmol/L (3.5-5.1); SODIUM 138 mmol/L (136-145)
[2017-09-11 06:53] LABS: ALK PHOS 63 U/L (45-117); BILIRUBIN,TOTAL 0.4 mg/dL (0.2-1.0); CREATININE 1.6 mg/dL (0.7-1.3); PHOSPHOROUS 2.7 mg/dL (2.5-4.9); SGOT/AST 36 U/L (15-37); SGPT/ALT 20 U/L (12-78); TOT PROT 4.8 g/dl (6.4-8.2)
[2017-09-11] MEDS ORDERED: PT OWN MED DRAWER 7, Y5N ONE ×2 (07:54→09:10)
--- NOTE | 2017-09-11 08:13 | PN ---
Physical Exam: SUBJECTIVE: Patient seen and examined this morning in ICU. Patient continues to have pain and feel weakness. OBJECTIVE: Vital Signs Period Temp Pulse Resp BP Sys/Irizarry Pulse Ox Last 24 Hr 98.1 F-99 F 77-112 14-21 91-124/50-68 94-97 GENERAL: The patient is awake, alert, and fully oriented, in no acute distress. LUNGS: Breath sounds equal, clear to auscultation bilaterally, no wheezes, no crackles, on 2L via nasal canula HEART: Regular rate and rhythm, S1, S2 without murmur, rub or gallop. ABDOMEN: Soft, nontender, nondistended, normoactive bowel sounds : Bryant catheter draining dark yellow urine EXTREMITIES: Muscle strength 5/5 in Upper extremities to Flexion and extension, 5/5 in Lower extremities to dorsiflexion, plantar flexion, knee flexion and extension, 2+ pulses, no edema, in SCD's NEUROLOGICAL: C5-T1 and L4-S1 gross sensation intact throughout BACK: Surgical site bandaged without surrounding erythema or drainage. Laboratory Results - last 24 hr 09/10/17 09/11/17 09/11/17 13:05 05:30 05:30 WBC 17.5 H 13.0 H RBC 4.14 3.19 L Hgb 12.2 9.6 L Hct 37.3 28.5 L D MCV 90.2 89.2 MCH 29.5 30.1 MCHC 32.7 33.8 RDW 14.5 14.5 Plt Count 172 112 L D MPV 9.9 9.9 Absolute Neuts (auto) 14.9 11.0 Neutrophils % 85.2 H 84.4 H Lymphocytes % 4.8 L 5.0 L Monocytes % 9.8 10.4 H Eosinophils % 0.0 0.0 Basophils % 0.2 0.2 Nucleated RBC % 0 0 Sodium 138 Potassium 4.4 Chloride 102 Carbon Dioxide 31 Anion Gap 5 L BUN 36 H Creatinine 1.6 H Creat Clearance w eGFR 43.07 Random Glucose 134 H D Calcium 8.2 L Phosphorus 2.7 Magnesium 1.7 L Total Bilirubin 0.4 AST 36 ALT 20 Alkaline Phosphatase 63 Total Protein 4.8 L Albumin 2.4 L Active Medications Acetaminophen (Tylenol -) 325 mg PO Q6H PRN PRN Reason: PAIN LEVEL 1-5 WITH OXYCODONE Last Admin: 09/11/17 07:55 Dose: 325 mg Acetaminophen (Tylenol -) 650 mg PO Q3H PRN PRN Reason: PAIN LEVEL 6-10 WITH OXYCODONE Fluoxetine HCl (Prozac -) 10 mg PO DAILY [facility] Last Admin: 09/10/17 10:14 Dose: 10 mg Hydromorphone HCl (Dilaudid Grading Clerk -) 0 mg PREP MANAGER PREP MANAGER [facility]; Protocol Last Admin: 09/10/17 10:14 Dose: Not Given Lactated Ringer's (Lactated Ringers Solution) 1,000 mls @ 100 mls/hr IV ASDIR [facility] Last Admin: 09/10/17 21:12 Dose: 100 mls/hr Famotidine/Sodium Chloride (Pepcid 20 Mg Premixed Ivpb -) 20 mg in 50 mls @ 100 mls/hr IVPB BID [facility] Last Admin: 09/10/17 21:11 Dose: 100 mls/hr Non-Formulary Medication (Calcipotriene/Betamethasone [Taclonex 0.005%-0.064% Suspens]) 0.1 tube TD PRN PRN PRN Reason: PSORIASIS Non-Formulary Medication (Modafinil [Modafinil]) 200 mg PO DAILY [facility] Ondansetron HCl (Zofran Injection) 4 mg IVPUSH Q6H PRN PRN Reason: NAUSEA AND/OR VOMITING Ondansetron HCl (Zofran Injection) 4 mg IVPUSH Q6H PRN PRN Reason: NAUSEA AND/OR VOMITING Oxycodone HCl (Roxicodone -) 5 mg PO Q6H PRN PRN Reason: PAIN LEVEL 1-5 Oxycodone HCl (Roxicodone -) 10 mg PO Q3H PRN PRN Reason: PAIN LEVEL 6-10 ASSESSMENT/PLAN: 71 year old male with a PMHx of HTN, HLD, chronic right ankle fracture and chronic edema, spinal surgery of discs C3-C6, spinal cortisone injections of discs L3-L5, MADHURI on cpap, narcolepsy and cataplexy who is S/P Lumbar decompression L3-S1 1. Spinal Stenosis s/p L4-S1 laminectomy POD#2 - Cefazolin 2 doses perioperatively - Will transition to PO Pain control with Tylenol and Oxycodone, D/C PREP MANAGER pump - Encouraged to ambulate and be out of bed - Remove bryant once ambulating - Advanced to Sodium controlled diet, tolerating well - PT Evaluation: Sat at EOB. C/O acute back pain and dizziness - Incentive Spirometry - Follow recommendations as per surgery team 2. Acute Anemia likely due to blood loss during surgery - Hgb 9.6, down from 12.2 - Hct 28.5, down from 37.3 - Repeat CBC shows Hgb at 9.8, Hct at 29.8 - Continue to monitor 3. CAMI - BUN and Cr remain elevated - Likely due to Significant blood loss during surgery (2100 ml's) - 1,125mL Blood Volume Replaced via Cell Saver, 3000mL Fluid Volume Replaced via Crystalloid - Hydrate and continue to monitor - Continue to monitor 4. Leukocytosis - Acute phase reactant likely elevated from surgery - WBC 15.8 - 2 doses cefazolin given - Continue to monitor, consider sepsis workup with accompanied by fevers 5. Hypomagnesemia - Mag 1.7, repleated - Continue to monitor 6. Hypotension - Likely due to hypoperfusion and hypovolemia from narcotic use - Improved, 91-124/50-68 this evening - Continue to hold all antihypertensives for now 7. Tachycardia - HR 72-112 - Possibly due to Hypotension vs pain - EKG: Normal sinus rhythm 8. MADHURI - Continue CPAP at night 9. DVT ppx - SCD Dispo - Transfer to med-surg Visit type - Emergency Visit Emergency Visit: No - New Patient This patient is new to me today: No - Critical Care Critical Care patient: Yes Total Critical Care Time (in minutes): 40 Critical Care Statement: The care of this patient involved high complexity decision making to prevent further life threatening deterioration of the patient 's condition and/or to evaluate & treat vital organ system(s) failure or risk of failure.
--- NOTE | 2017-09-11 08:45 | PN ---
Progress Note (short form) - Note Progress Note: Anesthesia post op/Pain Pt seen and examined S:Alert and awake comfortable O: Vital Signs Temperature 99 F 09/11/17 08:00 Pulse Rate 112 H 09/11/17 08:01 Respiratory Rate 18 09/11/17 08:01 Blood Pressure 115/67 09/11/17 08:01 O2 Sat by Pulse Oximetry (%) 97 09/11/17 08:04 CBC, BMP 09/11/17 05:30 09/11/17 05:30 A/P s/p PLIF Doinh well post op Uses CREW TRAINER Continue current care Blue Ortiz MD
[2017-09-11] MEDS ORDERED: MAGNESIUM SULF 50% (8.12 MEQ/2 ML-1 GM VIAL) IVPB ONE (08:54)
[2017-09-11] MEDS: FAMOTIDINE 20 MG/50 ML IVPB 20 MG/50 ML MG IVPB SCH ×2 (09:00→22:00)
[2017-09-11] MEDS: FLUoxetine HCL 10 MG CAPSULE (FP) PO SCH (09:13)
[2017-09-11] MEDS ORDERED: MAGNESIUM 1GM/D5W - 1 GM/100 ML IVPB IVPB ONE (10:00)
[2017-09-11] MEDS ORDERED: [UNRECOGNIZED DRUG - OTHER] TD PRN ×2 (11:30→14:40)
[2017-09-11] MEDS ORDERED: oxyCODONE HCL 5 MG TABLET PO PRN ×2 (11:30)
[2017-09-11] MEDS ORDERED: LACTATED RINGERS SOLUTION 1,000 ML IV SCH (11:30)
[2017-09-11] MEDS ORDERED: ONDANSETRON 4 MG/2 ML VIAL IVPUSH PRN ×3 (11:30→14:40)
[2017-09-11] MEDS ORDERED: ACETAMINOPHEN 325 MG TABLET (FP) PO PRN ×2 (11:30)
[2017-09-11] MEDS ORDERED: BETAMETHASONE TD PRN ×2 (11:30→14:40)
[2017-09-11] MEDS ORDERED: CALCIPOTRIENE TD PRN ×2 (11:30→14:40)
--- NOTE | 2017-09-11 11:53 | PN ---
Teaching Attending Note Name of Resident: Hira Bowman ATTENDING PHYSICIAN STATEMENT I saw and evaluated the patient. I reviewed the resident's note and discussed the case with the resident. I agree with the resident's findings and plan as documented. SUBJECTIVE: Pt seen and examined in the ICU. Pain controlled with current regimen. No fevers or chills. OBJECTIVE: Vital Signs Period Temp Pulse Resp BP Sys/Irizarry Pulse Ox Last 24 Hr 98.1 F-99 F 77-114 14-21 91-124/50-68 94-97 Intake & Output 09/08/17 09/09/17 09/10/17 09/11/17 23:59 23:59 23:59 23:59 Intake Total 4325 3500 900 Output Total 2500 1400 400 Balance 1825 2100 500 Weight 78.018 kg Gen: NAD at rest Heart: RRR Lung: decreased breath sounds at the bases Abd: soft, nontender Ext: no edema CBC, BMP 09/11/17 05:30 09/11/17 05:30 Active Medications Acetaminophen (Tylenol -) 325 mg PO Q6H PRN PRN Reason: PAIN LEVEL 1-5 WITH OXYCODONE Acetaminophen (Tylenol -) 650 mg PO Q3H PRN PRN Reason: PAIN LEVEL 6-10 WITH OXYCODONE Fluoxetine HCl (Prozac -) 10 mg PO DAILY [facility] Lactated Ringer's (Lactated Ringers Solution) 1,000 mls @ 100 mls/hr IV ASDIR [facility] Last Admin: 09/11/17 11:38 Dose: Not Given Famotidine/Sodium Chloride (Pepcid 20 Mg Premixed Ivpb -) 20 mg in 50 mls @ 100 mls/hr IVPB BID [facility] Non-Formulary Medication (Calcipotriene/Betamethasone [Taclonex 0.005%-0.064% Suspens]) 0.1 tube TD PRN PRN PRN Reason: PSORIASIS Non-Formulary Medication (Modafinil [Modafinil]) 200 mg PO DAILY [facility] Ondansetron HCl (Zofran Injection) 4 mg IVPUSH Q6H PRN PRN Reason: NAUSEA AND/OR VOMITING Oxycodone HCl (Roxicodone -) 5 mg PO Q6H PRN PRN Reason: PAIN LEVEL 1-5 Oxycodone HCl (Roxicodone -) 10 mg PO Q3H PRN PRN Reason: PAIN LEVEL 6-10 ASSESSMENT AND PLAN: Lumbar Spinal Stenosis s/p L4-S1 Laminectomies/L3-L4, L4-L5, L5-S1 PLIF Incidental Durotomy Acute Blood Loss Anemia Acute Kidney Injury HTN Hyperlipidemia - pain control - incentive spirometry - monitor H/H - IVF - monitor urine output, creatinine - PO/activity/DVT prophylaxis/disposition per surgery
[2017-09-11] MEDS ORDERED: DOCUSATE SODIUM 100 MG CAPSULE (FP) PO PRN (11:59)
[2017-09-11 13:15] LABS: BASO % 0.1 % (0-2.0); HEMATOCRIT 29.8 % (35.4-49); HEMOGLOBIN 9.8 GM/dL (11.7-16.9); LYMPH % 4.6 % (8-40); MCH 29.7 pg (25.7-33.7); MCHC 32.8 g/dl (32.0-35.9); MEAN CELL VOLUME 90.4 fl (80-96); MEAN PLT VOLUME 9.7 fl (7.5-11.1); NEUT % 85.3 % (42.8-82.8); PLATELET COUNT 136 K/MM3 (134-434); RDW 14.3 % (11.9-15.9); WHITE BLOOD COUNT 15.8 K/mm3 (4.0-10.0)
--- NOTE | 2017-09-11 14:19 | EKG ---
Test Reason : Blood Pressure : / mmHG Vent. Rate : 095 BPM Atrial Rate : 095 BPM P-R Int : 150 ms QRS Dur : 090 ms QT Int : 320 ms P-R-T Axes : 037 045 014 degrees QTc Int : 402 ms NORMAL SINUS RHYTHM NORMAL ECG NO PREVIOUS ECGS AVAILABLE Confirmed by ESTELLE FIELDS MD ([id number]) on 09/11/2017 2:19:11 PM Referred By: Bridger SEGOVIA Confirmed By:ESTELLE FIELDS MD
--- NOTE | 2017-09-11 14:20 | PN ---
Teaching Attending Note Name of Resident: Sunita Denise ATTENDING PHYSICIAN STATEMENT I saw and evaluated the patient. I reviewed the resident's note and discussed the case with the resident. I agree with the resident's findings and plan as documented. SUBJECTIVE:contines to have generalized weakness. states pain is controlled. denies CP, SOB, fever, chills, N/V/C/D OBJECTIVE: Last Vital Signs Temp Pulse Resp BP Pulse Ox 99.4 F 94 H 18 113/72 97 09/11/17 13:46 09/11/17 13:47 09/11/17 13:47 09/11/17 12:14 09/11/17 08:04 General NAD CV S1 S2 RRR no murmur/rub/gallop Lungs CTA B/L no wheezing/rales/rhonchi extremities strength equal in all 4 extremities good dorsi/plantarflexion. sensation intact. bandage on spine is c/d/I ASSESSMENT AND PLAN: 71yo M with PMH spinal stenosis, HTN, dyslipidemia, R ankle fracture, psoriasis , MADHURI on cpap, narcolepsy presented for scheduled for laminectmy 1. Spinal stenosis s/p L4-S1 laminectomy with durotomy tear s/p repair. will switch to oral percocet. was only able to sit on edge of bed. will evaluate to see how works with PT today. parish bryant until able to ambulate. further recommendations per surgery. 2. significant blood loss during surgery- cellsaver and crystalloids given during surgery. hgb trending down. no reports of bleeding. will repeat CBC later today. no indication for transfusion at this time 3. Hypotension- typicaly hypertensives. likely due to hypovolemia combined with narcotic use. now normotensive. would hold all antihypertensives and restart as needed 4. tachycardia- possible du eto hypovolemia vs pain. will obtain EKG to assess if sinus rhythm 5. CAMI- likely due to hypotension. no known hx of CKD. stable. will cont with IVF. avoid nephrotoxic agents. consider renal u/s if does not improve 6. MADHURI- on cpap HS 7. narcolepsy- on modafinil. will see if formulary. if not pt can bring in from home 8. DVT ppx- SCD 9. MICU monitoring. stable for transfer to med-surg 10. pt would benefit from SARITA. agreeable at this time. notified SW. The care of this patient involved high complexity decision making to prevent further life threatening deterioration of the patient's condition and/or to evaluate & treat vital organ system(s) failure or risk of . 38 mins
[2017-09-11] MEDS: ACETAMINOPHEN 325 MG TABLET (FP) PO PRN (15:43)
[2017-09-11] MEDS: oxyCODONE HCL 5 MG TABLET PO PRN ×3 (15:43→22:15)
[2017-09-11] MEDS: DOCUSATE SODIUM 100 MG CAPSULE (FP) PO PRN (15:44)
[2017-09-11] MEDS: LACTATED RINGERS SOLUTION 1,000 ML IV SCH (15:45)
--- NOTE | 2017-09-11 18:32 | PATH ---
Surgical Pathology Report Patient Name: ARSH ESCOBAR JR Med. Rec. #: [id number] /Age/Gender: 1945 (Age: 71) / M Account: [id number] [facility] Taken: 09/09/2017 Received: 09/10/2017 Reported: 09/11/2017 Physicians: Mil Muhammad M.D. Specimen(s) Received DISC Clinical History Spinal stenosis Final Diagnosis DISC, DISCECTOMY: FRAGMENTS OF CARTILAGE, BONE, AND FIBROCONNECTIVE TISSUE SHOWING DEGENERATIVE CHANGE Electronically Signed Tyrel Lewis M.D. Gross Description Received in formalin, labeled "disc" are multiple fibrotic, cartilaginous and bone tissue measuring 3 x 3 x 1 cm. in aggregate. Flag Football Coach sections are submitted in one cassette after decalcification. CRYSTAL/09/10/2017 tu/09/10/2017
--- NOTE | 2017-09-11 20:52 | PN ---
Physical Exam: SUBJECTIVE: Patient seen and examined today in icu. Still c/o back pain. Also stated he felt warm this am. Denies cp, sob, huang, nausea, or vomiting. OBJECTIVE: Vital Signs Period Temp Pulse Resp BP Sys/Irizarry Pulse Ox Last 24 Hr 98.2 F-99.5 F 83-114 14-22 107-153/59-79 97-97 GENERAL: aaoX3 HEAD: NC/AT EYES: EOMI NECK: Trachea midline, full range of motion, supple. LUNGS: CTA B/L. HEART: RRR, -m/r/g, s1,s2+ ABDOMEN: soft, nt, nd, -bs. EXTREMITIES: 2+ pulses, warm NEUROLOGICAL: No neuro deficits PSYCH: Normal mood, normal affect. SKIN: Warm, dry. Bandage on back. Laboratory Results - last 24 hr 09/11/17 09/11/17 09/11/17 05:30 05:30 12:40 WBC 13.0 H 15.8 H RBC 3.19 L 3.30 L Hgb 9.6 L 9.8 L Hct 28.5 L D 29.8 L MCV 89.2 90.4 MCH 30.1 29.7 MCHC 33.8 32.8 RDW 14.5 14.3 Plt Count 112 L D 136 D MPV 9.9 9.7 Absolute Neuts (auto) 11.0 13.4 Neutrophils % 84.4 H 85.3 H Lymphocytes % 5.0 L 4.6 L Monocytes % 10.4 H 10.0 Eosinophils % 0.0 0.0 Basophils % 0.2 0.1 Nucleated RBC % 0 0 Sodium 138 Potassium 4.4 Chloride 102 Carbon Dioxide 31 Anion Gap 5 L BUN 36 H Creatinine 1.6 H Creat Clearance w eGFR 43.07 Random Glucose 134 H D Calcium 8.2 L Phosphorus 2.7 Magnesium 1.7 L Total Bilirubin 0.4 AST 36 ALT 20 Alkaline Phosphatase 63 Total Protein 4.8 L Albumin 2.4 L Active Medications Generic Name Dose Route Start Last Admin Trade Name Freq PRN Reason Stop Dose Admin Acetaminophen 325 mg 09/11/17 14:40 09/11/17 15:43 Tylenol - PO 325 mg Q6H PRN Administration PAIN LEVEL 1-5 WITH OXYCODONE Acetaminophen 650 mg 09/11/17 14:40 Tylenol - PO Q3H PRN PAIN LEVEL 6-10 WITH OXYCODONE Docusate Sodium 100 mg 09/11/17 14:40 09/11/17 15:44 Colace - PO 100 mg Q12H PRN Administration CONSTIPATION Fluoxetine HCl 10 mg 09/12/17 10:00 Prozac - PO DAILY [facility] Lactated Ringer's 1,000 mls @ 100 mls/hr 09/11/17 14:40 09/11/17 15:45 Lactated Ringers Solution IV 100 mls/hr ASDIR [facility] Administration Famotidine/Sodium Chloride 20 mg in 50 mls @ 100 mls/hr 09/11/17 22:00 Pepcid 20 Mg Premixed Ivpb - IVPB BID [facility] Non-Formulary Medication 0.1 tube 09/11/17 14:40 Calcipotriene/Betamethasone [Taclonex 0.005%-0.064% Suspens] TD PRN PRN PSORIASIS Non-Formulary Medication 200 mg 09/12/17 10:00 Modafinil [Modafinil] PO DAILY [facility] Ondansetron HCl 4 mg 09/11/17 14:40 Zofran Injection IVPUSH Q6H PRN NAUSEA AND/OR VOMITING Oxycodone HCl 5 mg 09/11/17 14:40 09/11/17 15:43 Roxicodone - PO 5 mg Q6H PRN Administration PAIN LEVEL 1-5 Oxycodone HCl 10 mg 09/11/17 14:40 09/11/17 18:49 Roxicodone - PO 10 mg Q3H PRN Administration PAIN LEVEL 6-10 ASSESSMENT/PLAN: 71yo M with past medical history of spinal stenosis, HTN, dyslipidemia, right ankle fracture, psoriasis, MADHURI on cpap, and narcolepsy presented for s/p L4-S1 Laminectomies/L3-L4, L4-L5, L5-S1 PLIF with Dr Muhammad. H/H .8/29.8- continue to monitor EASEMENT WORKER d/c'ed. Oxycodone 5 mg po q6h (prn pain level 1-5), 10 mg po q3h prn (pain level 6-10) Acetaminophen 650 mg po q3h prn, 325 mg po q6h prn Physical therapy Vargas d/c'ed. . incentive mary kate. Zofran for nausea. early ambulation qs JULI's MADHURI uses CPAP 10cm of h2o h/o Narcolepsy and catplexy- Modafanil 200 mg po daily- home med HTN Home meds: Lisinopril/HCTZ 20 mg po qd amlodipine 10 mg po qd FEN Lactated Ringer's Monitor Electrolytes Sodium Controlled Diet DVT ppx: JULI's Dispo: Pt being transferred to [facility]-surg. Visit type - Emergency Visit Emergency Visit: No - New Patient This patient is new to me today: No - Critical Care Critical Care patient: Yes Total Critical Care Time (in minutes): 35 Critical Care Statement: The care of this patient involved high complexity decision making to prevent further life threatening deterioration of the patient 's condition and/or to evaluate & treat vital organ system(s) failure or risk of failure.
--- NOTE | 2017-09-11 21:28 | PN ---
Progress Note (short form) - Note Progress Note: Patient complain of pain in suprapubic area, unable to pass urine. We tried to make him stand and pass urine but didn't help. Patient states that he cant take this pain/ discomfort more and started crying. Exam: suprapubic mild tenderness, bladder palpable. Bladder scan shows 625 ml of urine. will reinsert the bryant.
[2017-09-11] MEDS ORDERED: FAMOTIDINE 20 MG/50 ML IVPB 20 MG/50 ML MG IVPB SCH (22:00)
[2017-09-11] MEDS: TAMSULOSIN HCL 0.4 MG CAP.ER.24H (FP) PO SCH (22:15)
[2017-09-12] MEDS: LACTATED RINGERS SOLUTION 1,000 ML IV SCH (01:39)
[2017-09-12] MEDS: oxyCODONE HCL 5 MG TABLET PO PRN ×3 (01:46→12:40)
[2017-09-12 07:56] LABS: BASO % 0.2 % (0-2.0); EOS % 0.2 % (0-4.5); HEMATOCRIT 25.1 % (35.4-49); HEMOGLOBIN 8.5 GM/dL (11.7-16.9); LYMPH % 6.1 % (8-40); MCH 30.2 pg (25.7-33.7); MCHC 33.9 g/dl (32.0-35.9); MEAN CELL VOLUME 89.1 fl (80-96); MEAN PLT VOLUME 9.7 fl (7.5-11.1); MONO % 10.2 % (3.8-10.2); NEUT % 83.3 % (42.8-82.8); PLATELET COUNT 115 K/MM3 (134-434); RBC 2.82 M/mm3 (4.00-5.60); RDW 14.5 % (11.9-15.9); WHITE BLOOD COUNT 9.9 K/mm3 (4.0-10.0)
[2017-09-12 08:06] LABS: CHLORIDE 104 mmol/L (98-107); SODIUM 141 mmol/L (136-145)
[2017-09-12 08:19] LABS: ALBUMIN 2.3 g/dl (3.4-5.0); ALK PHOS 68 U/L (45-117); ANION GAP 6 (8-16); BILIRUBIN,TOTAL 0.8 mg/dL (0.2-1.0); BLOOD UREA NITROGEN 21 mg/dL (7-18); CALCIUM 8.4 mg/dL (8.5-10.1); CO2 31 mmol/L (21-32); CREATININE 1.1 mg/dL (0.7-1.3); GLUCOSE,RANDOM 98 mg/dL (74-106); PHOSPHOROUS 1.6 mg/dL (2.5-4.9); SGOT/AST 33 U/L (15-37); SGPT/ALT 18 U/L (12-78); TOT PROT 4.8 g/dl (6.4-8.2)
[2017-09-12] MEDS: MODAFINIL 200 MG PO SCH (08:22)
[2017-09-12] MEDS: HYDROmorphone *PCA* 10MG/50ML DISP.SYRIN PCA SCH (08:22)
[2017-09-12] MEDS: TAMSULOSIN HCL 0.4 MG CAP.ER.24H (FP) PO SCH (08:59)
[2017-09-12] MEDS: DOCUSATE SODIUM 100 MG CAPSULE (FP) PO PRN (09:40)
[2017-09-12] MEDS: FAMOTIDINE 20 MG/50 ML IVPB 20 MG/50 ML MG IVPB SCH (09:40)
[2017-09-12] MEDS: FLUoxetine HCL 10 MG CAPSULE (FP) PO SCH (09:40)
[2017-09-12] MEDS: NAPH,MB-DB/K PH,MBDB POWDER PACKET PO SCH ×2 (09:41→21:30)
[2017-09-12] MEDS ORDERED: FLUoxetine HCL 10 MG CAPSULE (FP) PO SCH (10:00)
[2017-09-12] MEDS ORDERED: MODAFINIL 200 MG PO SCH ×2 (10:00)
[2017-09-12] MEDS: ACETAMINOPHEN 325 MG TABLET (FP) PO PRN (12:41)
--- NOTE | 2017-09-12 12:43 | PN ---
Teaching Attending Note Name of Resident: Sunita Denise ATTENDING PHYSICIAN STATEMENT I saw and evaluated the patient. I reviewed the resident's note and discussed the case with the resident. I agree with the resident's findings and plan as documented. SUBJECTIVE:currently improved. states he was having a lot of suprapubic pain and inability to urinate once bryant was removed. now that it is replaced states his pain is now resolved. denies Cp, SOB, fever, chills, N/V/C/D OBJECTIVE: Last Vital Signs Temp Pulse Resp BP Pulse Ox 99.5 F 101 H 18 143/75 97 09/12/17 05:00 09/12/17 05:00 09/12/17 05:00 09/12/17 05:00 09/11/17 20:25 General NAD ASSESSMENT AND PLAN: 71yo M with PMH spinal stenosis, HTN, dyslipidemia, R ankle fracture, psoriasis , MADHURI on cpap, narcolepsy presented for scheduled for laminectmy 1. Spinal stenosis s/p L4-S1 laminectomy with durotomy tear s/p repair. pain controlled. mild improvement with PT yesterday. will re-assess today but would likely benefit from SARITA. further recommendations per surgery. 2. Urinary retention- possible BPH vs due to prolonged immobility. bryant draining well. can attempt to remove once ambulating more. 2. significant blood loss during surgery- cellsaver and crystalloids given during surgery. hgb trending down. no reports of bleeding. will repeat CBC later today and iron studies. no indication for transfusion at this time 3. Hypotension-now hypertensive. will re-start norvasc at reduced dose 5mg. titrate as needed. 4. tachycardia- possible du eto hypovolemia vs pain. EKG was NSR no ST changes. now improved. 5. CAMI- likely due to hypotension. no known hx of CKD. stable. resolved. d/c IVF. 6. MADHURI- on cpap HS 7. narcolepsy- on modafinil. will see if formulary. if not pt can bring in from home 8. DVT ppx- SCD 9. spoke with present at bedside. all questions answered. verbalized understanding and agreement
[2017-09-12 12:59] LABS: BASO % 0.2 % (0-2.0); EOS % 0.1 % (0-4.5); HEMATOCRIT 27.9 % (35.4-49); HEMOGLOBIN 9.3 GM/dL (11.7-16.9); LYMPH % 3.9 % (8-40); MCH 29.9 pg (25.7-33.7); MCHC 33.4 g/dl (32.0-35.9); MEAN CELL VOLUME 89.7 fl (80-96); MEAN PLT VOLUME 9.2 fl (7.5-11.1); MONO % 9.1 % (3.8-10.2); NEUT % 86.7 % (42.8-82.8); PLATELET COUNT 126 K/MM3 (134-434); RBC 3.12 M/mm3 (4.00-5.60); RDW 14.7 % (11.9-15.9); WHITE BLOOD COUNT 11.2 K/mm3 (4.0-10.0)
[2017-09-12] MEDS: amLODIPine BESYLATE 5 MG TABLET (FP) PO SCH (14:54)
--- NOTE | 2017-09-12 16:26 | PN ---
Physical Exam: SUBJECTIVE: Patient seen and examined this morning at bedside. Overnight, patient felt discomfort due to urinary retention. Since the bryant was reinserted , he feels much better and the suprapubic tenderness has resolved. Additionally patient experienced some hypertension over night. Denies any fevers, chills, chest pain, SOB, nausea, vomiting, abdominal pain. OBJECTIVE: Vital Signs Period Temp Pulse Resp BP Sys/Irizarry Pulse Ox Last 24 Hr 98.6 F-99.5 F 100-112 17-18 143-168/72-89 97 GENERAL: The patient is awake, alert, and fully oriented, in no acute distress. LUNGS: Breath sounds equal, clear to auscultation bilaterally, no wheezes, no crackles, on 2L via nasal canula HEART: Regular rate and rhythm, S1, S2 without murmur, rub or gallop. ABDOMEN: Soft, nondistended, normoactive bowel sounds, nontender to palpation throughout : Bryant catheter draining dark yellow urine EXTREMITIES: Upper extremity muscle strength 5/5 to Flexion and extension, Lower extremity muscle strength 5/5 to dorsiflexion, plantar flexion, knee flexion and extension, 2+ pulses, no edema NEUROLOGICAL: C5-T1 and L4-S1 gross sensation intact throughout BACK: Surgical site bandaged without surrounding erythema or drainage. Laboratory Results - last 24 hr 09/12/17 09/12/17 09/12/17 06:40 06:40 12:45 WBC 9.9 11.2 H RBC 2.82 L 3.12 L Hgb 8.5 L 9.3 L Hct 25.1 L D 27.9 L MCV 89.1 89.7 MCH 30.2 29.9 MCHC 33.9 33.4 RDW 14.5 14.7 Plt Count 115 L 126 L MPV 9.7 9.2 Absolute Neuts (auto) 8.2 9.7 Neutrophils % 83.3 H 86.7 H Lymphocytes % 6.1 L D 3.9 L D Monocytes % 10.2 9.1 Eosinophils % 0.2 D 0.1 Basophils % 0.2 0.2 Nucleated RBC % 0 0 Sodium 141 Potassium 4.0 Chloride 104 Carbon Dioxide 31 Anion Gap 6 L BUN 21 H Creatinine 1.1 Creat Clearance w eGFR > 60 Random Glucose 98 D Calcium 8.4 L Phosphorus 1.6 L D Magnesium 2.0 Total Bilirubin 0.8 AST 33 ALT 18 Alkaline Phosphatase 68 Total Protein 4.8 L Albumin 2.3 L Active Medications Acetaminophen (Tylenol -) 325 mg PO Q6H PRN PRN Reason: PAIN LEVEL 1-5 WITH OXYCODONE Last Admin: 09/11/17 15:43 Dose: 325 mg Acetaminophen (Tylenol -) 650 mg PO Q3H PRN PRN Reason: PAIN LEVEL 6-10 WITH OXYCODONE Last Admin: 09/12/17 12:41 Dose: 650 mg Amlodipine Besylate (Norvasc -) 5 mg PO DAILY [facility] Last Admin: 09/12/17 14:54 Dose: 5 mg Docusate Sodium (Colace -) 100 mg PO Q12H PRN PRN Reason: CONSTIPATION Last Admin: 09/12/17 09:40 Dose: 100 mg Fluoxetine HCl (Prozac -) 10 mg PO DAILY [facility] Last Admin: 09/12/17 09:40 Dose: 10 mg Non-Formulary Medication (Calcipotriene/Betamethasone [Taclonex 0.005%-0.064% Suspens]) 0.1 tube TD PRN PRN PRN Reason: PSORIASIS Non-Formulary Medication (Modafinil [Modafinil]) 200 mg PO DAILY [facility] Ondansetron HCl (Zofran Injection) 4 mg IVPUSH Q6H PRN PRN Reason: NAUSEA AND/OR VOMITING Oxycodone HCl (Roxicodone -) 5 mg PO Q6H PRN PRN Reason: PAIN LEVEL 1-5 Last Admin: 09/11/17 22:15 Dose: 5 mg Oxycodone HCl (Roxicodone -) 10 mg PO Q3H PRN PRN Reason: PAIN LEVEL 6-10 Last Admin: 09/12/17 12:40 Dose: 10 mg Potassium Phos/Sodium Phos (Phos-Nak Packet -) 2 packet PO BID [facility] Stop: 09/12/17 22:01 Last Admin: 09/12/17 09:41 Dose: 2 packet Tamsulosin HCl (Flomax -) 0.4 mg PO DAILY@0830 [facility] Last Admin: 09/12/17 08:59 Dose: 0.4 mg ASSESSMENT/PLAN: 71 year old male with a PMHx of HTN, HLD, chronic right ankle fracture and chronic edema, spinal surgery of discs C3-C6, spinal cortisone injections of discs L3-L5, MADHURI on cpap, narcolepsy and cataplexy who is S/P Lumbar decompression L3-S1 1. Spinal Stenosis s/p L4-S1 laminectomy POD#2 - Cefazolin 2 doses perioperatively - Pain controlled with PO Tylenol and Oxycodone - Encouraged to ambulate and be out of bed - Advanced to Sodium controlled diet, tolerating well - PT Evaluation: Improve ambulation distance but pt still requires A x 2 for safe bed mob, transfers and ambulation. Able to walk 50 feet with walker - Incentive Spirometry - Follow recommendations as per surgery team 2. Urinary retention - Likely due to prolonged immobility, consider BPH - Continue for now, Remove once ambulating - Encouraged to ambulate and be out of bed 3. Acute Anemia likely due to blood loss during surgery - Hgb 9.3, Hct 27.9 - Iron studies pending - Continue to monitor 4. Hypotension - Likely due to hypoperfusion and hypovolemia from narcotic use - Hypertensive over night - Start Norvasc 5 mg PO DAILY [facility] 5. CAMI - Resolved - Likely due to Significant blood loss during surgery (2100 ml's) - 1,125mL Blood Volume Replaced via Cell Saver, 3000mL Fluid Volume Replaced via Crystalloid - IVF D/C'ed 6. Leukocytosis - Acute phase reactant likely elevated from surgery - WBC 11.2 - 2 doses cefazolin given - Continue to monitor, consider sepsis workup with accompanied by fevers 7. Hypomagnesemia - Mag 2.0, resolved - Continue to monitor 7. Tachycardia - HR 100-112 - Possibly due to Hypotension vs pain - EKG: Normal sinus rhythm 8. MADHURI - Continue CPAP at night 9. DVT ppx - SCD Dispo - Transfer to med-surg Visit type - Emergency Visit Emergency Visit: No - New Patient This patient is new to me today: No - Critical Care Critical Care patient: No
[2017-09-13] MEDS: oxyCODONE HCL 5 MG TABLET PO PRN ×6 (00:06→19:31)
[2017-09-13] MEDS: ACETAMINOPHEN 325 MG TABLET (FP) PO PRN ×4 (00:07→14:09)
[2017-09-13 06:13] LABS: SERUM IRON SATURATION 5 % (15-55); TOTAL IRON BINDING CAPACITY 168 ug/dL (250-450); UIBC 160 ug/dL (111-343)
[2017-09-13 08:27] LABS: BASO % 0.3 % (0-2.0); EOS % 0.4 % (0-4.5); HEMATOCRIT 23.4 % (35.4-49); LYMPH % 4.8 % (8-40); MCH 30.4 pg (25.7-33.7); MCHC 34.2 g/dl (32.0-35.9); MEAN CELL VOLUME 88.8 fl (80-96); MEAN PLT VOLUME 9.7 fl (7.5-11.1); NEUT % 84.5 % (42.8-82.8); PLATELET COUNT 122 K/MM3 (134-434); RBC 2.63 M/mm3 (4.00-5.60); RDW 14.3 % (11.9-15.9); WHITE BLOOD COUNT 8.4 K/mm3 (4.0-10.0)
[2017-09-13 08:47] LABS: ALBUMIN 2.2 g/dl (3.4-5.0); ANION GAP 4 (8-16); BLOOD UREA NITROGEN 20 mg/dL (7-18); CALCIUM 8.5 mg/dL (8.5-10.1); CHLORIDE 101 mmol/L (98-107); CO2 33 mmol/L (21-32); CREATININE 0.8 mg/dL (0.7-1.3); GLUCOSE,RANDOM 133 mg/dL (74-106); MAGNESIUM 1.7 mg/dL (1.8-2.4); PHOSPHOROUS 2.7 mg/dL (2.5-4.9); POTASSIUM 4.2 mmol/L (3.5-5.1); SGOT/AST 31 U/L (15-37); SGPT/ALT 20 U/L (12-78); SODIUM 138 mmol/L (136-145)
[2017-09-13 08:52] LABS: ALK PHOS 67 U/L (45-117)
[2017-09-13 08:53] LABS: BILIRUBIN,TOTAL 0.6 mg/dL (0.2-1.0); TOT PROT 4.9 g/dl (6.4-8.2)
[2017-09-13] MEDS ORDERED: PT OWN MED DRAWER 7, Y5N ONE (09:45)
[2017-09-13] MEDS: FLUoxetine HCL 10 MG CAPSULE (FP) PO SCH (09:53)
[2017-09-13] MEDS: TAMSULOSIN HCL 0.4 MG CAP.ER.24H (FP) PO SCH (09:53)
[2017-09-13] MEDS: amLODIPine BESYLATE 5 MG TABLET (FP) PO SCH (09:53)
[2017-09-13] MEDS ORDERED: MAGNESIUM OXIDE 400 MG TABLET (FP) PO ONE (12:00)
--- NOTE | 2017-09-13 12:06 | PN ---
Teaching Attending Note Name of Resident: Sunita Denise ATTENDING PHYSICIAN STATEMENT I saw and evaluated the patient. I reviewed the resident's note and discussed the case with the resident. I agree with the resident's findings and plan as documented. SUBJECTIVE:states pain has been improving. denies CP, SOB, fever, chills, N/v/C/ D OBJECTIVE: Last Vital Signs Temp Pulse Resp BP Pulse Ox 98.7 F 107 H 20 158/70 95 09/13/17 06:00 09/13/17 06:00 09/13/17 06:00 09/13/17 06:00 09/12/17 21:00 General NAD ASSESSMENT AND PLAN: 71yo M with PMH spinal stenosis, HTN, dyslipidemia, R ankle fracture, psoriasis , MADHURI on cpap, narcolepsy presented for scheduled for laminectmy 1. Spinal stenosis s/p L4-S1 laminectomy with durotomy tear s/p repair. pain controlled. cont with PT. further recommendations from ortho. SARITA on discharge 2. Urinary retention- possible BPH vs due to prolonged immobility. bryant draining well. can attempt to remove once ambulating more. started on flomax 3. significant blood loss during surgery- cellsaver and crystalloids given during surgery. hgb stable in between 8-9.5. no signs of bleeding. iron panel showing anemia of chronic disease and iron deficiency. will start fe daily. educated him on side effects assoc with iron supplementation. will need iron study repeated in 3 months. no indication for transfusion at this time 4. Hypotension-now resolved. re-startd reduced dose of norvasc. titrate as needed 5. constipation- no BM for 4 days. start miralax and stool softeners. 6. tachycardia- possible du eto hypovolemia vs pain. EKG was NSR no ST changes. now improved. 7. CAMI- likely due to hypotension. no known hx of CKD. stable. resolved 8. MADHURI- on cpap HS 9. narcolepsy- on modafinil. will see if formulary. if not pt can bring in from home 10. DVT ppx- SCD 11. spoke with present at bedside. all questions answered. verbalized understanding and agreement. medically optimized for discharge. awaiting auth for SARITA placement.
[2017-09-13] MEDS ORDERED: POLYETHYLENE GLYCOL 3350 119 GM BTL PO SCH (12:15)
[2017-09-13] MEDS ORDERED: FERROUS SO4 325 MG TABLET (FP) PO SCH (12:15)
[2017-09-13 18:04] VITALS: BP 145/70; PULSE 98; TEMP 98.6
--- NOTE | 2017-09-13 19:44 | DS ---
Physical Exam: SUBJECTIVE: Patient seen and examined this morning at bedside. Patient was wearing his bipap and said he just woke up. He continues to feel some back pain and asked nursing for his pain meds twice over night. Denies any fevers, chills, chest pain, SOB, nausea, vomiting, abdominal pain. OBJECTIVE: Vital Signs Period Temp Pulse Resp BP Sys/Irizarry Pulse Ox Last 24 Hr 98.0 F-99.1 F 92-107 20-20 133-158/62-80 95-95 PHYSICAL EXAM GENERAL: The patient is awake, alert, and fully oriented, in no acute distress. LUNGS: CTA B/L, no wheezes, no crackles HEART: Regular rate and rhythm, S1, S2 without murmur, rub or gallop. ABDOMEN: Soft, nondistended, nontender, normoactive bowel sounds : Bryant catheter in place draining yellow urine UPPER EXTREMITIES: Muscle strength 5/5 to Flexion and extension LOWER EXTREMITIES:Muscle strength 5/5 to dorsiflexion, plantar flexion, no edema NEUROLOGICAL: C5-T1 and L4-S1 gross sensation intact BACK: Surgical site bandaged without surrounding erythema or drainage. LABS Laboratory Results - last 24 hr 09/12/17 09/13/17 09/13/17 12:45 07:15 07:15 WBC 8.4 RBC 2.63 L Hgb 8.0 L Hct 23.4 L D MCV 88.8 MCH 30.4 MCHC 34.2 RDW 14.3 Plt Count 122 L MPV 9.7 Absolute Neuts (auto) 7.1 Neutrophils % 84.5 H Lymphocytes % 4.8 L D Monocytes % 10.0 Eosinophils % 0.4 D Basophils % 0.3 Nucleated RBC % 0 Sodium 138 Potassium 4.2 Chloride 101 Carbon Dioxide 33 H Anion Gap 4 L BUN 20 H Creatinine 0.8 Creat Clearance w eGFR > 60 Random Glucose 133 H D Calcium 8.5 Phosphorus 2.7 D Magnesium 1.7 L Iron 8 L TIBC 168 L Iron Saturation 5 L Ferritin 335.2 H Total Bilirubin 0.6 AST 31 ALT 20 Alkaline Phosphatase 67 Total Protein 4.9 L Albumin 2.2 L HOSPITAL COURSE: Date of Admission:09/09/17 Date of Discharge: 09/13/17 Prehospital course as per [facility] OUT PATIENT THERAPIST Patient is here today for presurgical H&P for scheduled Lumbar decompression L3- S1 on 09/09/[address] Muhammad. Patient is a 71 year old male with a significant past medical history of hypertension, hyperlipidemia, chronic right ankle fracture with chronic edema, psoriasis, fractured right femur 1970, carpal tunnel surgery of right hand 2005, spinal surgery with removal and replacement of discs C3-C6 January 2006, spinal cortisone injections for spinal discs L3-L5 , sleep apnea (on cpap), narcolepsy and cataplexy. Patient is scheduled for lumbar decompression L3-S1 on 09/09/[address] Muhammad and is here for a pre op history and physical. He denies any chest pain, shortness of breath, palpitations, visual defects, abdominal pain or any other discomfort. States he feels well and offers no complaints. He acknowledges stopping ASA, Meloxicam and Centrum Silver prior to surgery as directed by his surgeon. Hospital course Patient was received from PACU after L4-S1 laminectomies. Patient was given 2 doses of cefazolin perioperitively and did not receive ABx after. He was initially on JEWELRY TECHNICIAN Pump for pain control, and then transitioned to Tylenol and Oxycodone. He was able to improve his ambulation distance while working with PT. Patients hypotension, hypomagnesemia, CAMI and leukocytosis resolved. He was started on Norvasc 5mg. Patient was discharged to a SNF with a bryant catheter in place. Minutes to complete discharge: 40 Discharge Summary Reason For Visit: SPINAL STENOSIS, LUMBAR REGION Current Active Problems CAMI (acute kidney injury) (Acute) Constipation (Acute) Iron deficiency anemia (Acute) S/P laminectomy (Acute) Urinary retention (Acute) HTN (hypertension) (Chronic) Narcolepsy and cataplexy (Chronic) MADHURI on CPAP (Chronic) Condition: Improved - Instructions Diet, Activity, Other Instructions: You had surgery of your back from L4-S1 You are were able to only walk 50ft with physical therapy so we are sending you to a [facility] facility for more physical therapy and occupational therapy to strengthen you. You may continue to take meloxicam as needed for pain Take meloxicam with food and lots of water, do not exceed 7.5mg in 24hrs We have adjusted your home medications. Please refer to medication list for these changes. Your blood pressure medications have been changed. You were also started on iron supplements. These can cause constipation and turn your stools black. Ensure you are having daily bowel movements while on this medication. You should have your iron studies repeated in 3 months. You are being discharged with the bryant catheter in place since you had some urinary retention. Once you are ambulating better you can have them do trials to see if you can have the bryant removed. If unable to be removed, you can follow up with a urologist. Information on one has been provided. Follow up with your primary care doctor in a week's time for CBC- to check for anemia If you don't have a primary care doctor, you may follow Dr Sunita Denise at [address] [place] [address] Follow up in 7-10 days after discharge at [facility] office; call for appointment; . Dr Muhammad movement instruction: No bending/lifting/twisting for 6 months No soaking in a pool/tub/renee/ocean for 6 weeks. If you think your symptoms are worsening, with worsening pain despite medication , fevers, foul smelling discharge or pus, increased bleeding, return to the emergency room Referrals: Zen Jones MD [Staff Physician] - (Ask for Dr Sunita Denise) Fili Romo MD [Staff Physician] - Vinicius Muhammad MD [Staff Physician] - 1 Week [facility] - Home Medications Comprehensive Discharge Medication List: Ambulatory Orders Aspirin [Adult Aspirin] 81 mg PO DAILY 09/06/17 Calcipotriene/Betamethasone [Taclonex 0.005%-0.064% Suspens] 0.1 tube TD PRN PRN 09/06/17 Fluoxetine HCl [Prozac -] 10 mg PO DAILY 09/06/17 Meloxicam 15 mg PO DAILY 09/06/17 Modafinil 200 mg PO DAILY 09/06/17 Multivit-Min/FA/Lycopen/Lutein [Centrum Silver Men Tablet] 1 each PO DAILY 09/06 Harmans-3 Fatty Acids/Fish Oil [Fish Oil 1,000 mg Capsule] 2 each PO DAILY Sildenafil Citrate [Viagra] 100 mg PO PRN 09/10/17 Amlodipine Besylate [Norvasc -] 5 mg PO DAILY #30 tablet 09/13/17 Docusate Sodium [Colace -] 100 mg PO Q12H PRN capsule 09/13/17 Ferrous Sulfate [Feosol] 325 mg PO DAILY ud 09/13/17 Polyethylene Glycol 3350 [Miralax 119 gm Btl -] 17 gm PO DAILY bottle 09/13/17 Sennosides/Docusate Sodium [Pericolace -] 2 tablet PO HS tablet 09/13/17 Tamsulosin HCl [Flomax -] 0.4 mg PO DAILY@0830 cap.er.24h 09/13/17 oxyCODONE HCL [Roxicodone -] 10 mg PO Q4H PRN tablet MDD 60 09/13/17 This patient is new to me today: No Emergency Visit: No Critical Care patient: No - Discharge Referral [facility]erred to [facility] No
[2017-09-13] MEDS ORDERED: SENNOSIDES/DOCUSATE COMBO (SENNA PLUS) TABLET (UD) PO SCH (22:00)
== END 2017-09-13 20:00 | DRG 460 ==
LOC: JSAMEDAYSX 05:20 → JICU 21:56 → J5S 09-11 21:47
PROVIDERS: ADMIT Orthopaedic Surgery Orthopaedic Surgery of the Spine; ATTEND Internal Medicine
PROC: 0SG10AJ Fusion of 2 or more Lumbar Vertebral Joints with Interbody Fusion Device, Posterior Approach, Anterior Column, Open Approach (ICD-10-PCS; 2017-09-09)
PROC: 0SB20ZZ Excision of Lumbar Vertebral Disc, Open Approach (ICD-10-PCS; 2017-09-09)
PROC: 0SG30AJ Fusion of Lumbosacral Joint with Interbody Fusion Device, Posterior Approach, Anterior Column, Open Approach (ICD-10-PCS; 2017-09-09)
PROC: 00QT0ZZ Repair Spinal Meninges, Open Approach (ICD-10-PCS; 2017-09-09)
PROC: 00NY0ZZ Release Lumbar Spinal Cord, Open Approach (ICD-10-PCS; principal; 2017-09-09 11:30)
DX: M48.061 Spinal stenosis, lumbar region without neurogenic claudication (principal); G97.41 Accidental puncture or laceration of dura during a procedure; D62 Acute posthemorrhagic anemia; N17.9 Acute kidney failure, unspecified; I10 Essential (primary) hypertension; E78.5 Hyperlipidemia, unspecified; L40.9 Psoriasis, unspecified; G47.411 Narcolepsy with cataplexy; M41.86 Other forms of scoliosis, lumbar region; Y83.8 Other surgical procedures as the cause of abnormal reaction of the patient, or of later complication, without mention of misadventure at the time of the procedure; I95.9 Hypotension, unspecified; G47.33 Obstructive sleep apnea (adult) (pediatric); E86.1 Hypovolemia; E83.42 Hypomagnesemia; R00.0 Tachycardia, unspecified; R33.8 Other retention of urine; D72.829 Elevated white blood cell count, unspecified; K59.00 Constipation, unspecified
CPT/HCPCS: 36415; 76000-TC-FY; 80048; 80053; 82728; 83540; 83550; 83735; 84100; 85025; 85027; 86850; 86891; 86900; 86901; 88304-TC; 93005; 93010; 94760; 97116-GP; 97161-GP; J0131; J1644